=== PATIENT | male | born 1990 | race African-American/Black ===

== ENCOUNTER 2017-12-04 12:55 | Emergency (ER) | payer SELFPAY ==
[~2017-12-04] VITALS: Ht 175.3 cm; Wt 66.0 kg
[2017-12-04] MEDS ORDERED: AZITHROMYCIN 500 MG TABLET PO ONE (16:15)
[2017-12-04] MEDS ORDERED: CEFTRIAXONE SODIUM 250 MG/VIAL IM ONE (16:15)
[2017-12-04 16:28] LABS: CLARITY URINE CLEAR (CLEAR); COLOR URINE YELLOW (YELLOW); KETONES URINE TRACE (NEGATIVE); LEUKOCYTE ESTERASE URINE NEGATIVE (NEGATIVE); NITRITE URINE NEGATIVE (NEGATIVE); OCCULT BLOOD URINE NEGATIVE (NEGATIVE); PROTEIN URINE NEGATIVE (NEGATIVE); SPECIFIC GRAVITY URINE 1.022 (1.005-1.030)
[2017-12-04 18:34] VITALS: BP 123/66
[2017-12-07 04:13] LABS: CHLAMYDIA TRACHOMATIS NAA Negative (Negative); NEISSERIA GONORRHOEAE NAA Negative (Negative)
== END 2017-12-04 18:42 | disposition home or self-care (01) ==
LOC: ER 12:55
DX: J20.9 Acute bronchitis, unspecified (principal)
CPT/HCPCS: 71045; 81003; 87491; 87591; 96372; 99285; J0696; Z7610